=== PATIENT | female | born 1990 | race Caucasian/White ===

== ENCOUNTER 2016-10-22 19:49 | Emergency (ER) | payer OTHER ==
[~2016-10-22] VITALS: Ht 157.5 cm; Wt 58.5 kg
[~2016-10-22 19:49] MED LIST: ACET325T33 PO; ALBU18HF IH; ALBU8.5H3 INH; FLOV220 IH; HYDR-3498 PO; HYDR-762 PO; IBUP-1542 PO; MONT10TA21 PO; ONDA4TAB35 PO; PHEN100C PO; PHEN300C2 PO
[2016-10-22 20:36] VITALS: Ht 157.5 cm; Wt 58.5 kg
[2016-10-22] MEDS ORDERED: predniSONE 20 MG TAB PO STA (22:05)
[2016-10-22] MEDS ORDERED: ALBUTEROL 0.5% (NEB) 2.5 MG/0.5 ML AMP INH STA (22:05)
[2016-10-22] MEDS ORDERED: PRED20TA PO (22:16)
[2016-10-22] MEDS ORDERED: ALBU8.5H3 INH (22:16)
[2016-10-22] MEDS ORDERED: IBUP-1542 PO (22:16)
--- NOTE | 2016-10-22 23:33 | ERD ---
ER Documentation Chief Complaint Date/Time DATE: 10/22/16 TIME: 23:20 Chief Complaint Cough x2 days and Asthma HPI 26-year-old woman complains of cough, nasal congestion, rhinorrhea, and shortness of breath consistent with her asthma history. She ran out of her albuterol pump. She denies fevers or chills, no vomiting or diarrhea, no chest pain, no calf or leg swelling. ROS All systems reviewed and are negative except as per history of present illness. Medications Home Meds Active Scripts Ibuprofen* (Ibuprofen*) 600 Mg Tablet, 600 MG PO Q8 for PAIN AND/OR INFLAMMATION , #30 TAB Prov:LETICIA MOISE MD 10/22/16 Prednisone* (Prednisone*) 20 Mg Tab, 40 MG PO DAILY for 4 Days, TAB Prov:LETICIA MOISE MD 10/22/16 Albuterol Sulfate* (Proair HFA*) 8.5 Gm Hfa.aer.ad, 2 PUFF INH Q6H Y for WHEEZING AND SOB, #1 INHALER Prov:LETICIA MOISE MD 10/22/16 Acetaminophen* (Tylenol*) 325 Mg Tablet, 1 TAB PO Q6 Y for PAIN AND OR ELEVATED TEMP, #20 TAB Prov:VINAY DENNISON PA-C 03/10/16 Albuterol Sulfate* (Proair HFA*) 8.5 Gm Hfa.aer.ad, 2 PUFF INH Q4, #1 INHALER Prov:VINAY DENNISON PA-C 03/10/16 Ibuprofen* (Motrin*) 600 Mg Tab, 600 MG PO Q6, #20 TAB Prov:CHRIS SNIDER MD 02/12/16 Hydrocodone Bit-Acetaminophen* ([place]*) 5-325 Mg Tab, 1 TAB PO Q6 Y for PAIN, # 7 TAB Prov:NATIVIDAD STAHL PA-C 01/16/16 Hydrocodone Bit-Acetaminophen* ([place]*) 10-325 Mg Tablet, 1 TAB PO Q6 Y for PAIN , #7 TAB Prov:ANNETTE MONTEJO MD 03/16/15 Ondansetron Hcl* (Zofran* ODT) 4 mg -ODT Tab.disper, 4 MG PO Q4H Y for NAUSEA AND OR VOMITING, #30 TAB Prov:ANNETTE MONTEJO MD 03/16/15 Phenytoin* Sodium Extended (Dilantin*) 300 Mg Capsule, 300 MG PO Q3H, #2 CAP Prov:ANNETTE MONTEJO MD 03/16/15 Phenytoin* Sodium Extended (Dilantin*) 100 Mg Capsule, 100 MG PO TID, #90 CAP Prov:ANNETTE MONTEJO MD 03/16/15 Reported Medications Montelukast Sodium* (Singulair*) 10 Mg Tablet, 10 MG PO HS, TAB 03/16/15 Albuterol Sulfate* (Ventolin HFA*) 18 Gm Hfa.aer.ad, 2 PUFF IH Q4H Y for WHEEZING AND RESP DISTRESS, EA 03/16/15 Fluticasone Propionate* (Flovent* 220) 13 Gm Aer.w.adap, 1 PUFF IH BID, EA 12/13/14 Allergies Allergies: Coded Allergies: No Known Allergies (Verified Allergy, Mild, 02/12/16) PMhx/Soc Asthma History of Surgery: No Anesthesia Reaction: No Hx Neurological Disorder: Yes (EPISPSY D/C'D 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 2014) Hx Respiratory Disorders: Yes (ASTHMA WITH INHALER FLOVENT TODAY ) Hx Cardiac Disorders: No Hx Psychiatric Problems: No Hx Miscellaneous Medical Probl: Yes (BIPOLAR) Hx Alcohol Use: Yes (SOCIALLY ) Hx Substance Use: Yes (MARIJUANA DAILY NOT TODAY ) Hx Tobacco Use: No Smoking Status: Current every day smoker FmHx Family History: No diabetes Physical Exam Vitals Vital Signs Date Time Temp Pulse Resp B/P Pulse Ox O2 Delivery O2 Flow Rate FiO2 10/22/16 22:25 85 24 100 21 10/22/16 20:36 98.5 83 24 108/63 98 Physical Exam GENERAL: Well-developed, well-nourished, well-hydrated, in no apparent distress , looks nontoxic in appearance HEENT: Moist mucous membranes, positive nasal congestion and rhinorrhea, pink conjunctiva, no cervical spine tenderness or step-off deformities, no goiter, no jaundice or icterus, extraocular movements intact without pain. No submandibular induration, and no pharyngeal erythema NEURO: Alert and oriented 3, cranial nerves II through XII intact bilaterally, pupils equal round reactive to light, no focal deficits or facial asymmetry, sensation intact distally Strength 5/5 in upper and lower extremities bilaterally CARDIAC: Regular rate and rhythm, no murmurs rubs or gallops LUNGS: Bilateral wheezing, no crackles or stridor ABDOMEN: Soft nontender, no guarding, no rigidity, no rebound, no psoas sign no obturator sign. Normoactive bowel sounds SKIN: Warm and dry to touch, no abrasions, contusions, or hematomas, no lacerations, no ecchymosis, no target lesions, and without ulcers EXTREMITIES: No clubbing cyanosis or edema, calves are bilaterally symmetrical, no Homans sign, no popliteal cord sign. Distal pulses equal and bilateral PSYCH: Normal affect without agitation or irritability Results 24 hrs Current Medications Medications (Trade) Dose Ordered Sig/Farzana Route PRN Reason Start Time Stop Time Status Last Admin Dose Admin Albuterol (Proventil 0.5% (Neb)) 10 mg ONCE STAT INH 10/22/16 22:05 10/22/16 22:07 DC 10/22/16 22:28 Prednisone (Prednisone) 40 mg ONCE STAT PO 10/22/16 22:05 10/22/16 22:07 DC 10/22/16 22:18 Procedures/MDM I administered prednisone 40 mg p.o., and albuterol 10 mg via nebulizer with good response. Chest X-ray 1V Interpreted by me: Soft Tissue: No acute abnormalities Bones: No acute abnormalities Mediastinum/Cardiac Silhouette/Lungs: No acute abnormalities Differential diagnoses considered, included but not limited to acute coronary syndrome, pulmonary embolism, aortic dissection, abdominal aortic aneurysm, sepsis, stroke, meningitis, encephalitis, pneumonia, appendicitis, cholecystitis , bowel obstruction, pyelonephritis, nephrolithiasis, cystitis, as well as metabolic, hematologic, and electrolyte abnormalities. As well as abscess, cellulitis, fractures, and dislocations. Patient feels much better at this time, and vital signs are normal, symptoms have improved. I did give strict instructions to return to the ED if symptoms continue or worsen, patient will otherwise follow-up with primary care physician. Patient understood instructions and agreed to plan. Departure Diagnosis: Primary Impression: Asthma attack Additional Impression: URI, acute Condition: Good Patient Instructions: Asthma, Acute (Adult), Uri, Viral, No Abx (Adult) LETICIA MOISE MD Oct 22, 2016 23:32
[2016-10-22 23:37] VITALS: BP 112/58; PULSE 101; RESP 19; TEMP 97.5
--- NOTE | 2016-10-23 00:36 | RADRPT ---
PROCEDURE: CHEST - 1 VIEW CLINICAL INDICATION: 26-year-old female with shortness of breath. TECHNIQUE: A single frontal AP semi-erect view of the chest was performed portably. The images we re reviewed on a PACS workstation. COMPARISON: Chest x-ray March 02, 2016. FINDINGS: The cardiomediastinal silhouette has a normal appearance. There is no evidence for an infiltrate. T he pulmonary vascularity is within normal limits. There is no evidence for pneumothorax or pneumomed iastinum. The osseous structures are intact. IMPRESSION: No evidence for active cardiopulmonary disease. .Flavio Ford MD, MD Date Time Electronically viewed and signed by .Flavio Ford MD, on 10/23/2016 00:36 .M/
== END 2016-10-22 23:37 | disposition home or self-care (01) ==
LOC: FTE 19:49
DX: J45.901 Unspecified asthma with (acute) exacerbation (principal); J06.9 Acute upper respiratory infection, unspecified; F17.210 Nicotine dependence, cigarettes, uncomplicated
CPT/HCPCS: 71010; 94644; J7512; Z7502; Z7610